=== PATIENT | female | born 1960 | race Caucasian/White ===

== ENCOUNTER 2021-12-09 15:53 | Outpatient (REF) | payer BC, SELFPAY ==
[2021-12-09 17:53] LABS: SARS PCR* Negative SARS-CoV-2 (Negative)
== END 2021-12-09 15:54 | disposition home or self-care (01) ==
LOC: NPINS 15:53
PROVIDERS: Visit Provider Internal Medicine Gastroenterology
DX: Z20.822 Contact with and (suspected) exposure to COVID-19 (principal)
CPT/HCPCS: 87635

== ENCOUNTER 2021-12-12 08:25 | Outpatient (CLI) | payer BC, SELFPAY | END 2021-12-12 08:26 | disposition home or self-care (01) | LOC: OP CLINIC 08:26 | PROVIDERS: PCP Family Medicine; Visit Provider Internal Medicine Gastroenterology | DX: R19.5 Other fecal abnormalities (principal); K63.5 Polyp of colon | CPT/HCPCS: 45380; 45385; 88305; 99153; J2250; J3010 ==

== ENCOUNTER 2022-06-13 07:42 | Emergency (ER) | payer BC, SELFPAY ==
[2022-06-13 07:53] VITALS: BP 130/93; PULSE 85; TEMP 35.4; O2SAT 98; BMI 51.1
--- NOTE | 2022-06-13 08:22 | CRLHL7_ITS ---
For Patients: As a result of the Cures Act, medical imaging exams and procedure reports are released immediately into your electronic medical record. You may view this report before your referring provider. If you have questions, please contact your health care provider. Indication: Bilateral knee injury Technique: Three views each of each knee were acquired Comparison: None Findings: No lytic or blastic lesion. No acute fracture, dislocation or destructive process. Degenerative changes primarily involving the medial and patellofemoral compartments. No foreign body. No visible joint effusion. Quadriceps tendon spurs bilaterally. Impression: Degenerative changes bilaterally. No acute fracture, dislocation or destructive process on either side. Dictated by Marvin Amaya MD @ 06/13/2022 9:04:09 AM (Electronically Signed)
[2022-06-13] MEDS: ACETAMINOPHEN 500 MG TABLET 1000 MG PO (08:35)
[2022-06-13 09:51] VITALS: BP 141/87; PULSE 77; O2SAT 99
--- NOTE | 2022-06-13 15:24 | ED.LOWEXIN ---
HPI - Extremity Injury (Lower) General Date Seen: 06/13/22 Chief Complaint: Extremity Pain/Injury, Lower Stated Complaint: Fell, injured both knees Time Seen by Provider: 06/13/22 08:06 Source: patient and family Mode of arrival: ambulatory Limitations: no limitations History of Present Illness HPI Narrative: Patient is a very nice 62-year-old lady who was going down the stairs and missed the 2nd from the last air, landing on her knees bilaterally in the flexed position, she has pain over her lower knees bilaterally, she is able to bear weight with pain, but thought she should need any x-ray. Denies any other injury to her hips, back, hands, wrists head or neck. She took some ice for her knees was really taking no medicines. Left greater than right of the knees is more painful. Denies any numbness tingling or weakness no snapping or popping when this occurred. Related Data Home Medications Medication Instructions Recorded Confirmed allopurinol 300 mg tablet mg 06/13/22 colchicine 0.6 mg tablet mg 06/13/22 doxepin 10 mg capsule mg 06/13/22 famotidine 20 mg tablet mg 06/13/22 furosemide 20 mg tablet mg 06/13/22 levothyroxine 150 mcg tablet mcg 06/13/22 levothyroxine 175 mcg tablet mcg 06/13/22 metformin 500 mg tablet,extended mg PO 06/13/22 release 24 hr montelukast 10 mg tablet mg 06/13/22 phentermine 37.5 mg tablet mg 06/13/22 spironolactone 25 mg tablet mg 06/13/22 Allergies Allergy/AdvReac Type Severity Reaction Status Date / Time NSAIDS (Non-Steroidal Allergy Unknown Verified 12/02/21 12:01 Anti-Inflamma pantoprazole Allergy Unknown Verified 12/02/21 12:01 propoxyphene Allergy Unknown Verified 12/02/21 12:01 CHERRIES Allergy Unknown Uncoded 12/02/21 12:01 DIAZIDE Allergy Unknown Uncoded 12/02/21 12:01 Review of Systems Status of ROS: Reports: 10 or more systems reviewed and unremarkable except as noted in History and below PFSH PFSH Social History Smoking Status: Former smoker How often do you have a drink containing alcohol: never How often do you have six or more drinks on one occasion: Never AUDIT-C Alcohol total score: 0 Non-prescribed substance use: denies use Exam Const: Vital Signs, click to edit/add: Vital Signs - 24 hr 06/13/22 07:53 06/13/22 09:51 Temperature 95.7 F L Pulse Rate [Pulse Oximeter] 85 77 Blood Pressure [Ri ght Upper Arm] 130/93 H 141/87 H Pulse Oximetry 98 99 Oxygen Delivery Me thod Room Air Room Air Course Course Hospital Course: Spoke with the patient and her , or x-rays are negative by my review and also by Radiology, I think this is more of a contusion which can be every bit is painful, unfortunately given her previous gastric surgery she is not a candidate to take NSAIDs, I will give her short supply of narcotic medications I did review the ZOOLOGY PROFESSOR and she did have any outstanding prescriptions or any evidence of any other significant activity. Icing is suggested, I offered her knee immobilizer, but she would like to try without which I do not think is a bad idea she does have that history of previous meniscal issues with her knees bilaterally and she may need to follow-up with orthopedics. I wrote a note for work that she should be off the next 48 hours to improve the situation. Vital Signs Vital signs: Initial Vital Signs Temperature 95.7 F L 06/13/22 07:53 Temperature Source Temporal Artery Scan 06/13/22 07:53 Pulse Rate 85 06/13/22 07:53 Blood Pressure 130/93 H 06/13/22 07:53 Blood Pressure Mean 105 06/13/22 07:53 Blood Pressure Position Sitting 06/13/22 07:53 Pulse Oximetry 98 06/13/22 07:53 Oxygen Delivery Method 06/13/22 07:53 Vital Signs Temperature 95.7 F L 06/13/22 07:53 Pulse Rate 85 06/13/22 07:53 Blood Pressure 130/93 H 06/13/22 07:53 Pulse Oximetry 98 06/13/22 07:53 Oxygen Delivery Method 06/13/22 07:53 Temperature 95.7 F L 06/13/22 07:53 Pulse Rate 77 06/13/22 09:51 Blood Pressure 141/87 H 06/13/22 09:51 Pulse Oximetry 99 06/13/22 09:51 Oxygen Delivery Method 06/13/22 09:51 MDM - Extremity Injury (Lower) Differential Diagnosis Differential diagnosis: Likely ankle sprain and strain, acute internal derangement of knee, fracture of femur, fracture of hip, puncture wound of foot, fracture of toe and ankle fracture Medical Records Attestation: I reviewed the patient's medical records. Lab Data Attestation: I reviewed the patient's lab results. Imaging Data knee : Attestation: I have reviewed the pertinent imaging results. My impression: Negative x-ray Radiologist's impression: Patient: MANJIT CLEVELAND Facility:?[facility] Patient ID:?[id number] Site Patient ID:?[id number]. Site :?[id number] Study:?XRay Knee Right 3 VIEW-06/13/2022 9:00:53 AM Ordering Physician:Susu Crook Final Report: Indication: Bilateral knee injury Technique: Three views each of each knee were acquired Comparison: None Findings: No lytic or blastic lesion. No acute fracture, dislocation or destructive process. Degenerative changes primarily involving the medial and patellofemoral compartments. No foreign body. No visible joint effusion. Quadriceps tendon spurs bilaterally. Impression: Degenerative changes bilaterally. No acute fracture, dislocation or destructive process on either side. Dictated by Marvin Amaya MD @ 06/13/2022 9:03:39 AM (Electronic Signature) Patient: MANJIT CLEVELAND Facility:?[facility] Patient ID:?[id number] Site Patient ID:?[id number]. Site :?[id number] Study:?XRay Knee Left 3 VIEW-06/13/2022 9:00:55 AM Ordering Physician:Susu Crook Final Report: Indication: Bilateral knee injury Technique: Three views each of each knee were acquired Comparison: None Findings: No lytic or blastic lesion. No acute fracture, dislocation or destructive process. Degenerative changes primarily involving the medial and patellofemoral compartments. No foreign body. No visible joint effusion. Quadriceps tendon spurs bilaterally. Impression: Degenerative changes bilaterally. No acute fracture, dislocation or destructive process on either side. Dictated by Marvin Amaya MD @ 06/13/2022 9:04:09 AM (Electronic Signature) Discharge Plan Discharge Clinical Impression: Contusion of knee Patient Disposition: Home w/ Parent or Adult Condition: Stable Instructions: Contusion in Adults (ED) Additional Instructions: Home rest use of ice underneath, Percocet for the discomfort, no kneeling on her knee. Follow-up with primary care if ongoing signs and symptoms, little bit of bacitracin or antibiotic ointment on the abrasion on her left knee would be helpful. Return as needed Prescriptions: No Action levothyroxine 175 mcg tablet Label Comments: TAKE 1 TABLET TABLET BY MOUTH DAILY phentermine 37.5 mg tablet Label Comments: TAKE ONE TABLET BY MOUTH DAILY doxepin 10 mg capsule Label Comments: TAKE 1 TO 2 CAPSULES BY MOUTH AT BEDTIME FOR HIVES spironolactone 25 mg tablet Label Comments: TAKE ONE TABLET BY MOUTH TWICE DAILY NEEDED FOR EDEMA famotidine 20 mg tablet Label Comments: TAKE 1 TABLET BY MOUTH 2 TIMES DAILY NEEDED levothyroxine 150 mcg tablet Label Comments: TAKE ONE TABLET BY MOUTH BEFORE BREAKFAST montelukast 10 mg tablet Label Comments: TAKE 1 TABLET BY MOUTH AT BEDTIME allopurinol 300 mg tablet Label Comments: TAKE 1 TABLET(300MG) BY MOUTH ONCE DAILY. furosemide 20 mg tablet Label Comments: TAKE TWO TABLETS BY MOUTH EVERY MORNING colchicine 0.6 mg tablet Label Comments: TAKE ONE TABLET BY MOUTH 2 TIMES DAILY NEEDED metformin 500 mg tablet extended release 24 hr PO Label Comments: TAKE 4 TABLETS BY MOUTH DAILY Follow Up/Referrals: Salena Her MD [Primary Care Provider] - Stand Alone Forms: [employer] Info Instructions
== END 2022-06-13 10:54 | disposition home or self-care (01) ==
PROVIDERS: Emergency Provider Family Medicine; PCP Family Medicine
DX: S80.02XA Contusion of left knee, initial encounter (principal); S80.01XA Contusion of right knee, initial encounter; W10.9XXA Fall (on) (from) unspecified stairs and steps, initial encounter
CPT/HCPCS: 73562; 99283; A9270

== ENCOUNTER 2022-08-10 21:43 | Emergency (ER) | payer BC, SELFPAY ==
[2022-08-10 22:02] VITALS: BP 138/86; PULSE 79; RESP 20; TEMP 36.6; O2SAT 98; BMI 49.2
--- NOTE | 2022-08-10 22:06 | ED_ITS ---
HPI - General Adult General Time Seen by Provider: 22:06 Date Seen: 08/10/22 Chief complaint: Flank Pain Stated complaint: pain in l side low back raditing to hip to front. Time Seen by Provider: 08/10/22 22:06 Source: patient and RN notes reviewed Mode of arrival: ambulatory Limitations: no limitations History of Present Illness HPI narrative: Patient is a 62-year-old female that started with left lower back pain that is wrapping into the left lower quadrant of her abdomen. She has had 1 episode of vomiting with it, feels nauseated and feels like she might throw up again now. She has constipation, did have a bowel movement tonight though. Symptoms started about 530 tonight. No fever, no urinary changes that she is aware of. She has not had any vaginal bleeding for years. She has had a history of kidney stones but feels like this is different. No trauma. Patient has had a gastric bypass, that is the reason for listing NSAIDs as an allergy. She does not have a true allergy. Thus, reviewed we should be able to use Toradol IV. Related Data Home Medications Medication Instructions Recorded Confirmed allopurinol 300 mg tablet mg 06/13/22 colchicine 0.6 mg tablet mg 06/13/22 doxepin 10 mg capsule mg 06/13/22 famotidine 20 mg tablet mg 06/13/22 furosemide 20 mg tablet mg 06/13/22 levothyroxine 150 mcg tablet mcg 06/13/22 levothyroxine 175 mcg tablet mcg 06/13/22 metformin 500 mg tablet,extended mg PO 06/13/22 release 24 hr montelukast 10 mg tablet mg 06/13/22 phentermine 37.5 mg tablet mg 06/13/22 spironolactone 25 mg tablet mg 06/13/22 cetirizine .ROUTE 08/10/22 Allergies Allergy/AdvReac Type Severity Reaction Status Date / Time NSAIDS (Non-Steroidal Allergy Unknown Verified 12/02/21 12:01 Anti-Inflamma pantoprazole Allergy Unknown Verified 12/02/21 12:01 propoxyphene Allergy Unknown Verified 12/02/21 12:01 CHERRIES Allergy Unknown Uncoded 12/02/21 12:01 DIAZIDE Allergy Unknown Uncoded 12/02/21 12:01 Review of Systems Status of ROS: Reports: 10 or more systems reviewed and unremarkable except as noted in History and below PFSH PFSH Social History Smoking Status: Former smoker How often do you have a drink containing alcohol: never How often do you have six or more drinks on one occasion: Never AUDIT-C Alcohol total score: 0 Non-prescribed substance use: denies use Exam Const: Vital Signs, click to edit/add: Vital Signs - 24 hr 08/10/22 22:02 08/10/22 22:49 Temperature 97.8 F Pulse Rate [Left P ulse Oximeter] 79 Respiratory Rate 20 Blood Pressure [Ri ght Upper Arm] 138/86 Pulse Oximetry 98 98 Oxygen Delivery Me thod Room Air Documenting provider has reviewed patient's vital signs: yes Common normals: oriented x3, no limitations, healthy appearing, alert and well nourished General appearance: cooperative, comfortable, well kempt and well developed Nutritional appearance: obese Other: Has a few beads of sweat developing on her forehead. Was initially comfortable until I had her move to lay down, made her feel more nauseated. HENMT: Common normals: normocephalic, head/scalp atraumatic, hearing grossly normal bilaterally and external nose normal Head and scalp: normocephalic and atraumatic Nose: external nose normal Eye: Common normals: PERRL, EOMs intact bilaterally, conjunctivae normal and no scleral icterus Conjunctiva: conjunctiva(e) normal Pupil: PERRL Neck & C-Spine: Common normals: full ROM, no lymphadenopathy and supple Resp: Common normals: normal respiratory effort, no retractions, no use of accessory muscles and clear to auscultation bilaterally Auscultation: clear to auscultation bilaterally Cardio: Common normals: regular rate, regular rhythm, S1 normal heart sound, S2 normal heart sound, no gallops, no clicks, no murmurs and no rub Rate: regular rate Rhythm: regular rhythm Heart sounds: S1 normal and S2 normal GI: Common normals: Normal to inspection, nondistended, normoactive bowel sounds present, soft to palpation, no hepatosplenomegaly and no masses Palpation: soft and no hepatosplenomegaly Other: Has left lower quadrant tenderness without rebound or guarding. Cannot appreciate any masses on palpation. Back & Pelvis: Common normals: thoracic and lumbar spine normal to inspection and no thoracic nor lumbar tenderness Other: No visible rash on her back or lower abdomen Neuro: Common normals: oriented x3, moves all extremities and gait normal Sensorium/orientation: alert Psych: Appearance: well kempt Course Course Hospital Course: Patient has had sudden onset left lower quadrant abdominal pain, do wonder about renal colic with kidney stones. She feels it is different but is certainly clinically looks like it could be along the lines of this type of pathology. Will give her Toradol, Zofran and some IV fluids. Will do a CT of her abdomen pelvis and get appropriate labs including a urinalysis. Certainly can be other intra-abdominal pathology, could even be constipation. Diverticulitis is a possibility. Ultimately with her labs and CT imaging, hopefully we will find our diagnosis. This seems to be intra-abdominal pathology, not musculoskeletal from what I am seeing here. Reevaluation(s) Reevaluation #1: Have reviewed with patient that she has a large kidney stone on the left, 10 mm x 7 mm. I am doubtful that this will pass. Her pain is improved. We discussed options. We have no urology that comes here, no association with any urologist. She had been at [facility] before and sounds like she has had to have lithotripsy before. We will see if we can get her hospitalized for this large kidney stone. Conceivably, her pain is better but it is going to be extremely difficult to arrange this outpatient if at all possible. There is possibly a bed at [facility] in [place] in the [facility]. Patient would like to see if she could possibly be transferred there. Time: 23:56 Consultations Consultation #1: Accepted by the hospitalist Dr. Lynch at [facility]. Had spoke with the on- call urologist prior to that who agreed for transfer. Time: 00:31 Vital Signs Vital signs: Initial Vital Signs Temperature 97.8 F 08/10/22 22:02 Temperature Source Temporal Artery Scan 08/10/22 22:02 Pulse Rate 79 08/10/22 22:02 Pulse Rhythm Regular 08/10/22 22:02 Respiratory Rate 20 08/10/22 22:02 Blood Pressure 138/86 08/10/22 22:02 Blood Pressure Mean 103 08/10/22 22:02 Blood Pressure Position Sitting 08/10/22 22:02 Pulse Oximetry 98 03/30/23 22:02 Oxygen Delivery Method Room Air 08/10/22 22:02 Vital Signs Temperature 97.8 F 08/10/22 22:02 Pulse Rate 79 08/10/22 22:02 Respiratory Rate 20 08/10/22 22:02 Blood Pressure 138/86 08/10/22 22:02 Pulse Oximetry 98 08/10/22 22:02 Oxygen Delivery Method Room Air 08/10/22 22:02 Temperature 97.8 F 08/10/22 22:02 Pulse Rate 79 08/10/22 22:02 Respiratory Rate 20 08/10/22 22:02 Blood Pressure 138/86 08/10/22 22:02 Pulse Oximetry 98 08/10/22 22:49 Oxygen Delivery Method Room Air 08/10/22 22:02 Medical Decision Making Lab Data Lab results reviewed: Yes I reviewed the patient's lab results Labs: Lab Results 08/10/22 Range/Units 22:49 WBC 14.89 H (4.50-11.00) K/uL RBC 5.05 (4.00-5.20) m/uL Hgb 15.3 (12.0-16.0) gm/dL Hct 45.2 (33.0-51.0) % MCV 90 (80-100) fL MCH 30 (26-34) pg MCHC 34 (32-36) gm/dL RDW Coeff of Leila 13.2 (11.5-15.5) % Plt Count 393 (140-440) K/uL Neut % (Auto) 72.5 H (42.0-72.0) % Lymph % (Auto) 19.2 L (20-44) % Fannin % (Auto) 6.2 (0.0-11.0) % Eos % (Auto) 1.3 (0.0-7.0) % Baso % (Auto) 0.3 (0.0-3.0) % Neut # (Auto) 10.80 H (1.7-7.0) K/uL Lymph # (Auto) 2.90 (0.90-2.90) K/uL Fannin # (Auto) 0.90 (0.00-0.90) K/UL Eos # (Auto) 0.20 (0.00-0.50) K/uL Baso # (Auto) 0.00 (0.00-0.30) K/uL Sodium 141 (135-149) mmol/L Potassium 4.4 (3.6-5.1) mmol/L Chloride 106 (96-114) mmol/L Carbon Dioxide 25 (20-32) mmol/L BUN 16 (7-30) mg/dL Creatinine 1.1 (0.5-1.5) mg/dL Estimated Creat Clear 50.24 Estimated GFR 56 ml/min Glucose 132 H (60-115) mg/dL Lactate 2.2 H (0.5-1.9) mmol/L Calcium 9.8 (8.4-10.6) mg/dL Total Bilirubin 0.5 (0.1-1.5) mg/dL AST 28 (12-35) U/L ALT 27 (4-35) U/L Alkaline Phosphatase 87 (40-150) U/L C-Reactive Protein 0.6 (0.5-1.0) mg/dL Total Protein 8.1 (6.0-8.3) g/dL Albumin 4.5 (3.3-5.0) g/dL Imaging Data CT scan - abdomen: Attestation: I have reviewed the pertinent imaging results. Radiologist's impression: Patient: MANJIT HATFIELD Facility:?[facility] Patient ID:?[id number] Site Patient ID:?[id number]. Site :?[id number] Study:?CT Abdomen/Pelvis without-08/10/2022 10:49:41 PM Ordering Physician:?Dennis Decker Final Report: INDICATION: Pain in left lower back radiating to the front, nausea. TECHNIQUE: CT abdomen and pelvis without contrast. COMPARISON: None. FINDINGS: Lower chest: Unremarkable. Liver: Normal in size and attenuation. Gallbladder and bile ducts: No stones or inflammation. No biliary ductal dilatation. Spleen: Normal in size. Adrenal glands: Normal in size. No nodules. Pancreas: Mild fatty infiltration. Kidneys: 10 x 7 mm calculus in the proximal left ureter. Mild left hydronephrosis. Mild asymmetric left perinephric stranding, likely due to increased hydrostatic pressures. Two small nonobstructive renal calculi in the right renal lower pole. GI tract: Postsurgical changes of gastric bypass. Normal in caliber. Normal brannon endix. Lymph nodes: No lymphadenopathy. Vasculature: Unremarkable. Abdominal wall/Omentum/Peritoneum: Fat containing umbilical hernia. No free air or significant free fluid. Pelvis: Unremarkable. Bones: Degenerative changes of the spine. IMPRESSION: 1. 10 x 7 mm proximal left ureteral calculus with mild left hydronephrosis. 2. Right nonobstructive nephrolithiasis. Please note that all CT scans at this facility use dose modulation, iterative reconstruction, and/or weight-based dosing when appropriate to reduce radiation dose to as low as reasonably achievable. Dictated by Hernandez Ding MD @ 08/10/2022 11:24:59 PM (Electronic Signature) Critical Care Time Critical Care Time Critical Care Time: No Discharge Plan Discharge Clinical Impression: Calculus of ureter, Renal colic on left side Patient Disposition: Xfer Acute Care Hospital Discharge Location: [facility] Condition: Stable
--- NOTE | 2022-08-10 22:15 | CRLHL7_ITS ---
For Patients: As a result of the Century Cures Act, medical imaging exams and procedure reports are released immediately into your electronic medical record. You may view this report before your referring provider. If you have questions, please contact your health care provider. INDICATION: Pain in left lower back radiating to the front, nausea. TECHNIQUE: CT abdomen and pelvis without contrast. COMPARISON: None. FINDINGS: Lower chest: Unremarkable. Liver: Normal in size and attenuation. Gallbladder and bile ducts: No stones or inflammation. No biliary ductal dilatation. Spleen: Normal in size. Adrenal glands: Normal in size. No nodules. Pancreas: Mild fatty infiltration. Kidneys: 10 x 7 mm calculus in the proximal left ureter. Mild left hydronephrosis. Mild asymmetric left perinephric stranding, likely due to increased hydrostatic pressures. Two small nonobstructive renal calculi in the right renal lower pole. GI tract: Postsurgical changes of gastric bypass. Normal in caliber. Normal appendix. Lymph nodes: No lymphadenopathy. Vasculature: Unremarkable. Abdominal wall/Omentum/Peritoneum: Fat containing umbilical hernia. No free air or significant free fluid. Pelvis: Unremarkable. Bones: Degenerative changes of the spine. IMPRESSION: 1. 10 x 7 mm proximal left ureteral calculus with mild left hydronephrosis. 2. Right nonobstructive nephrolithiasis. Please note that all CT scans at this facility use dose modulation, iterative reconstruction, and/or weight-based dosing when appropriate to reduce radiation dose to as low as reasonably achievable. Dictated by Hernandez Ding MD @ 08/10/2022 11:24:59 PM (Electronically Signed)
[2022-08-10 22:49] VITALS: O2SAT 98
[2022-08-10] MEDS: KETOROLAC 15 MG/ML inj IVP (22:50)
[2022-08-10] MEDS: ONDANSETRON 2 MG/ML inj 4 MG IVP (22:50)
[2022-08-10] MEDS: 0.9 % SODIUM CHLORIDE 500 ML 500 ML IV (22:50)
[2022-08-10 22:54] LABS: Lactate* 2.2 mmol/L (0.5-1.9)
[2022-08-10 23:12] LABS: Albumin* 4.5 g/dL (3.3-5.0); Chloride* 106 mmol/L (96-114)
[2022-08-10 23:13] LABS: Potassium* 4.4 mmol/L (3.6-5.1); Sodium* 141 mmol/L (135-149)
[2022-08-10 23:14] LABS: Basophils Percent Auto 0.3 % (0.0-3.0); Eosinophils Percent Auto 1.3 % (0.0-7.0); Hematocrit 45.2 % (33.0-51.0); Hemoglobin* 15.3 gm/dL (12.0-16.0); Immature Granulocytes Pct Auto 0.5 %; Lymphocytes Percent Auto 19.2 % (20-44); Mean Corpuscular HGB Conc 34 gm/dL (32-36); Mean Corpuscular Hemoglobin 30 pg (26-34); Mean Corpuscular Volume 90 fL (80-100); Monocytes Percent Auto 6.2 % (0.0-11.0); Neutrophils Percent Auto 72.5 % (42.0-72.0); Platelet Count* 393 K/uL (140-440); RDW Coefficient of Variation % 13.2 % (11.5-15.5); Red Blood Count 5.05 m/uL (4.00-5.20); White Blood Count* 14.89 K/uL (4.50-11.00)
[2022-08-10 23:15] LABS: Alkaline Phosphatase* 87 U/L (40-150); Aspartate Amino Transferase* 28 U/L (12-35); Bilirubin Total* 0.5 mg/dL (0.1-1.5); Carbon Dioxide* 25 mmol/L (20-32); Creatinine* 1.1 mg/dL (0.5-1.5); Est. Creatinine Clearance* 50.24; Estimated Glomerular Filt Rate 56 ml/min; Total Protein* 8.1 g/dL (6.0-8.3)
[2022-08-10 23:16] LABS: Alanine Aminotransferase* 27 U/L (4-35); Blood Urea Nitrogen* 16 mg/dL (7-30); Calcium* 9.8 mg/dL (8.4-10.6); Glucose* 132 mg/dL (60-115)
[2022-08-10 23:18] LABS: C Reactive Protein* 0.6 mg/dL (0.5-1.0)
[2022-08-10 23:19] LABS: Slide Review Reflex No
[2022-08-11 01:11] LABS: Appearance Urine Clear (Clear); Bilirubin Urine Negative (Negative); Blood Urine 3+ (Negative); Color Urine Yellow (Yellow); Glucose Urine Negative (Negative); Ketones Urine Negative (Negative); Leukocyte Esterase Urine Trace (Negative); Nitrite Urine Negative (Negative); Protein Urine Negative (Negative); Urobilinogen Urine 0.2 (0.2-1.0)
[2022-08-11 01:23] LABS: Bacteria Urine Few; Squamous Epithelial Cell Urine Few (None-Few)
[2022-08-11 01:27] VITALS: BP 142/89; PULSE 78; RESP 16; TEMP 36.9; O2SAT 97
--- NOTE | 2022-08-11 01:55 | ED.NURSE ---
report to franki Schwarz
== END 2022-08-11 01:55 | disposition short-term general hospital (02) ==
PROVIDERS: Emergency Provider Family Medicine; PCP Family Medicine
DX: N20.1 Calculus of ureter (principal)
CPT/HCPCS: 36415; 74176; 80053; 81001; 83605; 85025; 86140; 87086; 94761; 96374; 96375; 99284; 99285; J1885; J2405; J7120

== ENCOUNTER 2022-08-11 01:35 | Outpatient (CLI) | payer BC, SELFPAY | END 2022-08-11 01:36 | disposition home or self-care (01) | LOC: AMB 09:20 | PROVIDERS: PCP Family Medicine; Visit Provider Family Medicine | DX: N20.0 Calculus of kidney (principal) | CPT/HCPCS: A0425; A0426; A0428 ==

== ENCOUNTER 2022-08-21 19:59 | Emergency (ER) | payer BC, SELFPAY ==
[2022-08-21 20:15] VITALS: BP 134/84; PULSE 84; RESP 18; TEMP 36.7; O2SAT 99; BMI 47.7
--- NOTE | 2022-08-21 20:29 | CRLHL7_ITS ---
For Patients: As a result of the Century Cures Act, medical imaging exams and procedure reports are released immediately into your electronic medical record. You may view this report before your referring provider. If you have questions, please contact your health care provider. INDICATION: Left flank pain. TECHNIQUE: CT abdomen and pelvis without contrast. COMPARISON: CT abdomen and pelvis 08/10/2022. FINDINGS: Lower chest: Mosaic attenuation of the lung bases, which can be seen small vessel or small airways disease. Liver: Shellie`s lobe, normal variant. Normal attenuation. No suspicious masses. Gallbladder and bile ducts: No stones or inflammation. No biliary dilatation. Pancreas: Unremarkable. No mass or inflammation. Spleen: Normal in size. No masses. Adrenal glands: Normal in size. No nodules. Kidneys, Ureters, and Bladder: Punctate nonobstructing right nephrolith. Interval progression of the previously seen 7 mm left ureteral calculus down into the distal ureter on today`s exam. Persistent mild to moderate left proximal hydroureteronephrosis and mild perinephric fat stranding. Unremarkable right ureter and bladder. GI tract: Gastric bypass changes. Normal in caliber. Normal appendix. Vasculature: Abdominal aorta is normal in caliber. Lymph nodes: No lymphadenopathy. Peritoneum/Abdominal Wall: Unchanged tiny fat-containing umbilical hernia.. No free air. No free fluid. Pelvis: Unremarkable. No pelvic masses. Bones: Unremarkable for age. IMPRESSION: Interval progression of the previously seen 7 mm left ureteral calculus down into the distal ureter. Persistent mild to moderate left proximal hydroureteronephrosis. Punctate nonobstructing right nephrolith. Please note that all CT scans at this facility use dose modulation, iterative reconstruction, and/or weight-based dosing when appropriate to reduce radiation dose to as low as reasonably achievable. Dictated by Florentin Benitez MD @ 08/21/2022 10:26:11 PM (Electronically Signed)
--- NOTE | 2022-08-21 20:30 | ED.GENADULT ---
HPI - General Adult General Chief complaint: Flank Pain Stated complaint: Kidney issues Time Seen by Provider: 08/21/22 20:22 History of Present Illness HPI narrative: This 62-year-old female comes in reporting left flank pain. She was seen a couple weeks ago approximately here and noted to have a large stone in the left ureter measuring 7 x 10 mm. She was transferred to [facility] where she did have a laser treatment to remove the stone. She had a stent in place for 7 days and this has been removed. She was feeling better until today when her left flank pain has returned. She does not report any fevers or symptoms of dysuria. Related Data Home Medications Medication Instructions Recorded Confirmed allopurinol 300 mg tablet 300 mg PO DAILY 06/13/22 08/21/22 colchicine 0.6 mg tablet 0.6 mg PO BID 06/13/22 08/21/22 doxepin 10 mg capsule 10 mg PO BID 06/13/22 08/21/22 famotidine 20 mg tablet 20 mg PO BID PRN 06/13/22 08/21/22 furosemide 20 mg tablet 20 mg PO DAILY 06/13/22 08/21/22 levothyroxine 175 mcg tablet 175 mcg PO DAILY 06/13/22 08/21/22 metformin 500 mg tablet,extended 500 mg PO DAILY 06/13/22 08/21/22 release 24 hr montelukast 10 mg tablet 10 mg PO HS 06/13/22 08/21/22 phentermine 37.5 mg tablet 37.5 mg PO DAILY 06/13/22 08/21/22 spironolactone 25 mg tablet 25 mg PO BID 06/13/22 08/21/22 cyanocobalamin (vitamin B-12) 1,000 mcg IM Q4W 08/21/22 08/21/22 1,000 mcg/mL injection solution oxycodone 5 mg tablet 5 mg PO Q6H PRN 08/21/22 08/21/22 Previous Rx's Medication Instructions Recorded oxycodone 5 mg capsule 5 mg PO Q6H PRN pain #20 caps 08/21/22 Allergies Allergy/AdvReac Type Severity Reaction Status Date / Time NSAIDS (Non-Steroidal Allergy Unknown Verified 08/21/22 20:19 Anti-Inflamma pantoprazole Allergy Unknown Verified 08/21/22 20:19 propoxyphene Allergy Unknown Verified 08/21/22 20:19 CHERRIES Allergy Unknown Uncoded 12/02/21 12:01 DIAZIDE Allergy Unknown Uncoded 12/02/21 12:01 Review of Systems Status of ROS: Reports: 10 or more systems reviewed and unremarkable except as noted in History and below Narrative: Constitutional: No fevers, no weight gain or loss. Eyes: No discharge. No vision changes. HENT: No congestion, no sore throat, no ear pain. Cardiovascular: No chest pain, no palpitations. Respiratory: No shortness of breath, no wheezes, no cough. Gastrointestinal: No vomiting, no diarrhea. Left flank pain radiating into the left abdomen. Genitourinary: No dysuria, no hematuria. Musculoskeletal: Normal range of motion. Skin: No rashes, no pruritis. Neurological: No dizziness, weakness, sensory change, speech change. Endo/Heme/Allergies: No bruising or bleeding. No polydipsia. Pysch: no suicidality, no anxiety, no insomnia. All other systems reviewed and are negative. [facility] Social History Smoking Status: Former smoker How often do you have a drink containing alcohol: never How often do you have six or more drinks on one occasion: Never AUDIT-C Alcohol total score: 0 Non-prescribed substance use: denies use Exam Narrative: Exam Narrative: Constitutional: Well-developed, well-nourished, no acute distress. HEENT: Normocephalic, atraumatic. Neck: Normal range of motion. Nontender. Supple. Heart: Regular. No murmurs. Normal rate. Intact distal pulses. Lungs: Clear to auscultation. No chest discomfort. No wheezes, rhonchi, or rales. Abdomen: Normal bowel sounds. Pain in the left flank region radiating into left abdomen. Genitalia: Deferred. Back: No midline tenderness. Normal range of motion. Extremities: Normal range of motion. No injury. Skin: Intact. No rash. Warm. No erythema or pallor. Neurologic: No altered sensation. No weakness. Alert and oriented. Psychiatric: No suicidality. No anxiety or depression. No insomnia. Nursing notes and vitals signs are reviewed. Const: Vital Signs, click to edit/add: Vital Signs - 24 hr 08/21/22 20:15 Temperature 98.0 F Pulse Rate [Right Pulse Oximeter] 84 Respiratory Rate 18 Blood Pressure [Ri ght Upper Arm] 134/84 Pulse Oximetry 99 Oxygen Delivery Me thod Room Air Course Vital Signs Vital signs: Initial Vital Signs Temperature 98.0 F 08/21/22 20:15 Temperature Source Temporal Artery Scan 08/21/22 20:15 Pulse Rate 84 08/21/22 20:15 Respiratory Rate 18 08/21/22 20:15 Blood Pressure 134/84 08/21/22 20:15 Blood Pressure Mean 100 08/21/22 20:15 Blood Pressure Position Sitting 08/21/22 20:15 Pulse Oximetry 99 08/21/22 20:15 Oxygen Delivery Method Room Air 08/21/22 20:15 Vital Signs Temperature 98.0 F 08/21/22 20:15 Pulse Rate 84 08/21/22 20:15 Respiratory Rate 18 08/21/22 20:15 Blood Pressure 134/84 08/21/22 20:15 Pulse Oximetry 99 08/21/22 20:15 Oxygen Delivery Method Room Air 08/21/22 20:15 Temperature 98.0 F 08/21/22 20:15 Pulse Rate 84 08/21/22 20:15 Respiratory Rate 18 08/21/22 20:15 Blood Pressure 134/84 08/21/22 20:15 Pulse Oximetry 99 08/21/22 20:15 Oxygen Delivery Method Room Air 08/21/22 20:15 Medical Decision Making MDM Narrative Medical decision making narrative: This patient comes in with left flank pain suspicious for a kidney stone. She had a recent laser procedure to remove a large stone in the left ureter and felt better after that procedure. She had a stent in place for about a week and that has been removed in out now for several days. Today she had recurrence of similar pain. CT imaging by my review with radiology report pending does show evidence of a larger than average stone in the distal left ureter with hydroureter upstream. This patient may need some assistance with passing the stone however it is down close to the bladder. She does have connections with a urologist and did have conversation today regarding recurrence of pain. She was instructed to come in here for evaluation. The patient did receive an intramuscular injection of Toradol for pain relief. She has a few tablets of oxycodone left but will need more pain medicine. She is okay to be discharged home and is recommended to follow-up with her urologist for ongoing management. She received prescription for oxycodone and Zofran. She does have a E history of gastric bypass about 10 years ago and has avoided NSAIDs but realized that Toradol given parenterally brought great relief to her symptoms. I did provide a prescription for some tablets of [place] that could be used sparingly if needed with the understanding that this does pose some increased risk for her GI track. Discharge Plan Discharge Clinical Impression: Calculus of ureter Patient Disposition: Home, Self-Care Condition: Stable Additional Instructions: Take medication as needed and indicated. Follow up with urologist for ongoing management. Return if worsening. Prescriptions: New oxycodone 5 mg capsule 5 mg PO Q6H PRN (Reason: pain) Qty: 20 0RF No Action levothyroxine 175 mcg tablet 175 mcg PO DAILY Patient Comments: TAKE 1 TABLET TABLET BY MOUTH DAILY phentermine 37.5 mg tablet 37.5 mg PO DAILY Patient Comments: TAKE ONE TABLET BY MOUTH DAILY doxepin 10 mg capsule 10 mg PO BID Patient Comments: TAKE 1 TO 2 CAPSULES BY MOUTH AT BEDTIME FOR HIVES spironolactone 25 mg tablet 25 mg PO BID Patient Comments: TAKE ONE TABLET BY MOUTH TWICE DAILY NEEDED FOR EDEMA famotidine 20 mg tablet 20 mg PO BID PRN Patient Comments: TAKE 1 TABLET BY MOUTH 2 TIMES DAILY NEEDED montelukast 10 mg tablet 10 mg PO HS Patient Comments: TAKE 1 TABLET BY MOUTH AT BEDTIME allopurinol 300 mg tablet 300 mg PO DAILY Patient Comments: TAKE 1 TABLET(300MG) BY MOUTH ONCE DAILY. furosemide 20 mg tablet 20 mg PO DAILY Patient Comments: TAKE TWO TABLETS BY MOUTH EVERY MORNING colchicine 0.6 mg tablet 0.6 mg PO BID Patient Comments: TAKE ONE TABLET BY MOUTH 2 TIMES DAILY NEEDED metformin 500 mg tablet extended release 24 hr 500 mg PO DAILY Patient Comments: TAKE 4 TABLETS BY MOUTH DAILY cyanocobalamin (vitamin B-12) 1,000 mcg/mL solution 1,000 mcg IM Q4W oxycodone 5 mg tablet 5 mg PO Q6H PRN Follow Up/Referrals: Salena Her MD [Primary Care Provider] - [facility]
[2022-08-21] MEDS: KETOROLAC 30 MG/ML inj IM (20:38)
== END 2022-08-21 21:35 | disposition home or self-care (01) ==
PROVIDERS: Emergency Provider Emergency Medicine Emergency Medical Services; PCP Family Medicine
DX: N20.1 Calculus of ureter (principal)
CPT/HCPCS: 74176; 96372; 99284; J1885

== ENCOUNTER 2023-10-15 08:24 | Outpatient (CLI) | payer BC, SELFPAY ==
--- OUTSIDE RECORDS SUMMARY | 2023-10-15 08:28 | XMS_ITS | Clinical Summary ---
Author Organization [facility] Address [place], [place] [address] Care Team Providers Care Inside Sales Professional Name Role Phone Salena Her MD Primary Care Provider [phone] Saul Hanley PharmD Unavailable [phone] Allergies Active Allergy Reactions Criticality Noted Date Comments Figueroa Anaphylaxis High 03/24/2008 Influenza Virus Vaccines Dizziness,Visual Disturbances 05/28/2020 Equilibrium of off and gets dehydrated Nsaids (Non-Steroidal Anti-Inflammatory Drug) 10/12/2010 Due to bariatric surgery Propoxyphene Hcl Other - Describe In Comment Field Pantoprazole 10/12/2010 Due to bariatric surgery Triamterene-Hydrochlor othiazid Myalgia Medium 05/31/2006 Medications Medication Sig Dispensed Refills Start Date End Date Status MY-[id number]-[id number] Acid-Lutein (CENTRUM SILVER) 500-250 mcg Chew Chew 2 Tablets by mouth at bedtime. 0 1 Active ferrous sulfate, 65 mg elemental, 325 mg (65 mg iron) EC tabletIndication s:Status post bariatric surgery Take 1 Tablet by mouth every 3 days. 0 1 Active Syringe with Needle, Safety (BD Integra) 3 mL 25 gauge x 5/8 syrgIndications: S/P bariatric surgery As directed. 100 Each 3 1 Active CPAPIndications: SYDNIE (obstructive sleep apnea) CPAP machine for home use at pressure 5-9 cmw, nasal mask x1/3month with nasal cushion x2/mo Length of Need: 99 months Frequency of Use: Daily 1 Each 11 2 Active phentermine (ADIPEX-P) 37.5 mg tablet Take 37.5 mg by mouth once daily before a meal. 2 Active colchicine 0.6 mg tablet Take 0.6 mg by mouth every 3 days for maintenance, the uses 0.6 mg by mouth twice daily as needed for gout flares. Active potassium gluconate 500 mg (83 mg) tab Take 1 Tablet by mouth every 3 days. Active oxymetazoline (Afrin Sinus, oxymetazoline,) 0.05 % nasal spray Inhale 2 Sprays into affected nostril(s) at bedtime. Active metFORMIN (GLUCOPHAGE) 1,000 mg tabletIndication s:Type 2 diabetes mellitus without complication, without long-term current use of insulin (HC) Take 1 Tablet (1,000 mg) by mouth once daily with a meal. 0 3 Active valACYclovir (VALTREX) 1 gram tablet Take by mouth every 12 hours. as needed (per patient) 0 3 Active cholecalciferol 2,000 unit tablet Take 2,000 units by mouth once daily. 3 Active levothyroxine (SYNTHROID) 150 mcg tablet Take 1 Tablet (150 mcg) by mouth before breakfast. 3 Active allopurinoL (ZYLOPRIM) 300 mg tabletIndication s:Gout, unspecified cause, unspecified chronicity, unspecified site Take 1 Tablet (300 mg) by mouth once daily. 90 Tablet 3 3 Active cyanocobalamin (VITAMIN B12) 1,000 mcg/mL injectionIndicat ions:Status post bariatric surgery INJECT 1 ML INTRAMUSCULAR EVERY 4 WEEKS. Strength: 1,000 mcg/mL 3 mL 3 3 Active famotidine (PEPCID) 20 mg tabletIndication s:Chronic GERD Take 1 Tablet (20 mg) by mouth 2 times daily if needed for GI Upset or Heartburn. 180 Tablet 3 3 Active fexofenadine (JJ) 180 mg tablet Take 180 mg by mouth once daily with a meal. Do not crush or chew. Active spironolactone (ALDACTONE) 25 mg tabletIndication s:Edema, unspecified type TAKE ONE TABLET (25MG) BY MOUTH TWICE DAILY NEEDED FOR EDEMA 180 Tablet 4 Active cetirizine (ZYRTEC) 10 mg tabletIndication s:Urticaria Take 2 Tablets (20 mg) by mouth once daily. 60 Tablet 4 4 Active furosemide (LASIX) 20 mg tabletIndication s:Edema, unspecified type TAKE 2 TABLETS (40 MG) BY MOUTH EVERY MORNING. 180 Tablet 4 Active cyclobenzaprine (FLEXERIL) 10 mg tabletIndication s:Trapezius muscle spasm,Lumbar foraminal stenosis,Lumbar strain, subsequent encounter TAKE 1 TABLET (10 MG) BY MOUTH 3 TIMES DAILY IF NEEDED FOR MUSCLE SPASM. 20 Tablet 2 4 Active furosemide (LASIX) 20 mg tabletIndication s:Edema, unspecified type Take 2 Tablets (40 mg) by mouth every morning. 180 Tablet 2 3 09/24/19 24 Discontinued cyclobenzaprine (FLEXERIL) 10 mg tabletIndication s:Trapezius muscle spasm,Lumbar foraminal stenosis,Lumbar strain, subsequent encounter TAKE 1 TABLET (10 MG) BY MOUTH 3 TIMES DAILY IF NEEDED FOR MUSCLE SPASM. 20 Tablet 4 09/26/19 24 Discontinued Active Problems Problem Noted Date Diagnosed Date Calculus of ureter 08/11/2022 08/11/2022 Ureteral stone with hydronephrosis 08/11/2022 Pap smear for cervical cancer screening 01/13/20 22 Overview: 10/2021 NIL/HPV negative. Plan: routine screening Colon polyp 12/15/2021 Overview: Colonoscopy 12/2021 3-TA, repeat in 5 years SYDNIE (obstructive sleep apnea) 06/13/2021 Osteopenia 03/21/2021 Calculus of kidney 03/17/2021 Morbid obesity 01/18/2021 Other shelter (current) drug therapy 1 Pain in both knees 01/18/2021 Sensorineural hearing loss, bilateral 07/09/2020 Tinnitus, bilateral 07/09/2020 History of meniscal tear of left knee 05/02/2019 H/O renal calculi 01/06/2019 Overview: 1977, 2011 and 2018 Hyperparathyroidism, unspecified 01/30/2017 Overview: 01/2017- normocalcemic 01/2017 dexascan Bone density - normal Lumbar foraminal stenosis 08/01/2011 Special screening for malignant neoplasms, colon 04/24/2011 Status post bariatric surgery 10/12/2010 Overview: Dos 09/21/2010 Thyroiditis, autoimmune 11/10/2009 Overview: DR HAWKINS HIGH ANTI THYROID AB. SEE 04/21 NOTE Chronic urticaria 11/10/2009 Overview: DUE TO THYROID DISEASE HIGH THYROID AUTOANTIBODIES Vitamin D deficiency 12/23/2008 Mixed hyperlipidemia 06/04/2006 Morbid obesity with BMI of 50.0-59.9, adult 05/14 Backache, unspecified 05/31/2006 Gout, unspecified 05/31/2006 Unspecified hypothyroidism 10/12/2005 Overview: Diagnosis 10/2005 Encounters Date Type Department Care Team Description 09/22/2023 Refill [facility] [address] [place] [address] Salena Her MD Refill Request (Furosemide, Cyclobenzaprine) 08/24/2023 Refill [facility] [address] [place] [address] Salena Her MD Refill Request (Spironolactone) 07/26/2023 Refill [facility] [address] [place] [address] Salena Her MD Refill Request (Cyclobenzaprine) from Last 3 Months Immunizations Name Administration Dates Next Due COVID-19 Vaccine Spikevax (M oderna 50mcg/0.5mL) 12YO+ [id number] Formula PF 06/13/2023 COVID-19 vaccine (Moderna 100mcg/0.5mL) ANNALISA VIGIL 09/01/2020,08/04/2020 COVID-19 vaccine (MAR SystemsBio NTech 30mcg/0.3mL) 12YO+ BIVALENT PF, MDV 02/10/2022 COVID-19 vaccine (MAR Systems[employer] NTech 30mcg/0.3mL) 12YO+ TAY-SUCROSE PF, MDV 11/04/2021,06/20/2021 Pneumococcal Conj 20-valent (Prevnar 20) 024 Pneumococcal Poly,23-Valent (Pneumovax) 03/08/20 09,03/11/2002 Pneumococcal conj 13-Valent (Prevnar 13) 014 Td (Age >=7 Years) 02/06/1997 Tdap 05/09/2019,03/24/2008 Zoster (Shingrix-RZV, recombinant) 11/02/2020, Family History Medical History Relation Name Comments Allergies Brother 1 Cancer-prostate Brother 2 Arthritis Father Cancer-prostate Father Heart Disease Father chf Other Father gout Heart Disease Maternal Aunt 1 Allergies Maternal Aunt 2 Cancer Maternal Aunt 3 Asthma Maternal Aunt 4 Arthritis Maternal Aunt 5 Diabetes Maternal Aunt 6 Thyroid Disease Maternal Aunt 7 Cancer-prostate Maternal Uncle 1 Diabetes Maternal Uncle 2 Allergies Mother Arthritis Mother Asthma Mother Cancer Mother genital cancer Diabetes Mother Heart Disease Mother chf// breezy abetic Hypertension Mother Thyroid Disease Mother hyperthyroid ism Cancer-breast Paternal Aunt 1 leslie recurrence, age 70 Cancer-prostate Paternal Aunt 1 leslie Arthritis Paternal Aunt 2 Arthritis Paternal Grandfather Cancer Paternal Grandfather skin ca Cancer Sister 1 uterine/cervix? cancer Allergies Sister 2 Allergies Son 1 Asthma Son 2 Relation Name Status Comments Brother 1 Brother 2 Father Maternal Aunt 1 Maternal Aunt 2 Maternal Aunt 3 Maternal Aunt 4 Maternal Aunt 5 Maternal Aunt 6 Maternal Aunt 7 Maternal Uncle 1 Maternal Uncle 2 Mother Paternal Aunt 1 leslie Alive Paternal Aunt 2 Paternal Grandfather Sister 1 Sister 2 Son 1 Son 2 Social History Tobacco Use Types Packs/Day Years Used Date Smoking Tobacco: Former Cigarettes 2 6 0 05/14/1972 - 05/14/1978 Smokeless Tobacco: Never Tobacco Cessation:Counseling Given: Yes Alcohol Use Standard Drinks/Week Comments Yes 0 (1 standard drink = 0.6 oz pur e alcohol) once every 6 month , rare PHQ-2 Answer Date Recorded PHQ-2 TOTAL SCORE 0 11/01/2022 Social Connections Answer Date Recorded Frequency of Communication with Friends and Fami ly 0 01/25/2023 Financial Resource Strain Answer Date R ecorded Difficulty of Paying Living Expenses 3 01/25/2023 Difficulty of Paying Living Expenses Not on file 01/25/2023 Food Insecurity Answer Date Recorded Worried About Running Out of Food in the Last Ye ar 1 01/25/2023 Transportation Needs Answer Date Record ed Lack of Transportation (Medical) 1 01/25/2023 Housing Stability Answer Date Recorded Unable to Pay for Housing in the Last Year 1 01/25/2023 Sex and Gender Information Value Date Recorded Sex Assigned at Not on file Gender Identity Not on file Sexual Orientation Not on file Obstetrics History Last Filed Vital Signs Vital Sign Reading Time Taken Comments Blood Pressure 119/73 06/13/2023 2:04 PM MARINE MACHINIST Pulse 86 07/04/2023 8:19 AM MARINE MACHINIST Temperature 36.4 ??C (97.6 ??F) 04/09/2023 9:03 AM CS T Respiratory Rate 16 01/19/2023 12:52 PM CDT Oxygen Saturation 99% 07/04/2023 8:19 AM MARINE MACHINIST Inhaled Oxygen Concentration - - Weight 138.3 kg (305 lb) 07/04/2023 8:19 AM MARINE MACHINIST Height 171.5 cm (5' 7.5) 04/09/2023 9:03 AM MARINE MACHINIST Body Mass Index 47.06 04/09/2023 9:03 AM MARINE MACHINIST Plan of Treatment Upcoming Encounters Date Type Department Care Team (Late st Contact Info) Description 10/22/2023 2:20 PM CDT Office Visit [facility] [address] [place] [address] Olman Petty MD [address] [facility] [place] [address] Health Maintenance Due Date Last Done Comments DEXA/DXA scan for age 65+ 2023 01/30/2017 Depression screening for age 12+ 11/02/2023 11/01/2022, 11/04/2021, 12/03/2020, Additional history exists Influenza for age 65+ 01/13/2024 Mammogram for age 45-75 03/14/2024 03/14/20 23, 11/04/2021, 06/07/2020, Additional history exists BMI (ht and wt on same day) for age 18+ 04/09/2024 04/09/2023, 12/27/2022, 11/01/2022, Additional history exists Pap test for age 21-65 11/04/2024 , 11/04/2021, 03/19/2018, Additional history exists Colonoscopy through age 75 12/12/202612/12, 12/12/2021, 12/12/2021, Additional history exists Lipids for age 45-75 11/02/2027 11/01/2022, 01/02/2022, 11/13/2018, Additional history exists Tetanus booster 05/09/2029 05/09/2019, 03/14, 02/06/1997 HIV for age 15-65 Completed 09/14/2010 Hepatitis C screening for ag e 18-79 Completed 12/29/2014 Tdap Completed 05/09/2019, 03/24/2008 Zoster (shingles) series for age 50+ Completed 11/02/2020, 05/28/2020 COVID-19 vaccine series Completed 06/13/19, 02/10/2022, 11/04/2021, Additional history exists Pneumococcal series for age 65+ Completed 06/13/2023, 04/20/2014, 03/08/2009, Additional history exists Medical Devices Implanted Type Area Business Office Representative Device Identifier Shelf Expiration Date Model / Serial / Lot Seamguard Reinforcement [id number] - [id number] Implanted:Qty: 3 on 09/21/2010 at [facility] [employer] 05/24/2013 [id number] # / / [id number] Stent Uret [id number] Contour - [id number] Implanted:Qty: 1 on 08/12/2022 by Colten Christina MD at [facility] Left: Ureter [facility] 04/30/2025 [id number] / / [id number] Description:Sticker sheet no t received Procedures Procedure Name Priority Date/Time Associated Diagnosis Comments XR MAMMO BILAT SCREENING Routine 03/14/2023 3:45 PM CDT Encounter for screening mammogram for malignant neoplasm of breast LIPID PANEL W REFLEX MEASURED LDL Routine 11/01/2022 4:45 PM CDT Lipid screening COLONOSCOPY DIAGNOSTIC Routine 12/12/2021 12:00 AM CDT Positive colorectal cancer screening using DNA-based stool test HPV THIN PREP Routine 11/04/2021 11:45 AM CDT Screening for malignant neoplasm of cervix XR DXA BONE DENSITY 2 SITES AXIAL Routine 01/30/2017 12:21 PM CDT Hyperparathyroidism, unspecified (HC) ANTI HCV Routine 12/29/2014 8:19 AM CDT Need for hepatitis C screening test ANTI HIV 1/2 Routine 09/14/2010 2:45 PM CDT Preop examination from Last 3 Months or Most Recently Relevant to Health Maintenance Results * XR MAMMO BILAT SCREENING (03/14/2023 3:45 PM CDT) Anatomical Region Laterality Modality BREASTS, Breast Left, Breast Right Bilateral Mammography Impressions 03/15/2023 4:00 PM CDT ??There is no radiographic evidence for malignancy. ??Recommend annual mammograms. MAMMOGRAM ASSESSMENT: ??ACR 1 Negative PATIENTS: You will also receive a letter with your examination results in an easy to read format. ??If you have questions about your results, please contact your referring provider. Narrative 03/15/2023 4:00 PM CDT For Patients: As a result of the 21st Century Cures Act, medical imaging exams and procedure reports are released immediately into your electronic medical record. You may view this report before your referring provider. If you have questions, please contact your health care provider. XR MAMMO BILAT SCREENING [[id number]] CLINICAL HISTORY: ??This is an asymptomatic 62 y.o. patient. INDICATION FOR EXAM: Mammogram Screening. TECHNIQUE: CC & MLO views were obtained. ??This study was evaluated with the assistance of Computer-Aided Detection. COMPARISON FILM: Yes 11/04/21 [facility] 06/07/20 [facility] FINDINGS: ??The breasts have scattered areas of fibroglandular density. There are no dominant masses, suspicious micro calcifications or areas of architectural distortion. Salena Her MD MAMMO * (ABNORMAL) LIPID PANEL W REFLEX MEASURED LDL (11/01/2022 4:45 PM CDT) CHOLESTEROL,TOTAL 193 100 - 199 mg/dL 11/02/2022 3:49 PM CDT [facility] Comment: Cholesterol, Total Reference Ranges Desirable <200 mg/dL Borderline 200-239 mg/dL High >=240 mg/dL TRIGLYCERIDES 323(H) <150 mg/dL 11/02/2022 3:49 PM CDT [facility] HDL CHOLESTEROL 36(L) >40 mg/dL 3:49 PM CDT [facility] NON-HDL CHOLESTEROL 157(H) <145 mg/dl 11/02/2022 3:49 PM CDT [facility] CHOL/HDL RATIO 5.36(H) <4.50 11/02/2022 3:49 PM CDT [facility] LDL CHOLESTEROL 92 <=130 mg/dL 11/02/2022 3:49 PM CDT [facility] VLDL CHOLESTEROL 65(H) <=30 mg/dL 11/02/2022 3:49 PM CDT [facility] PROVIDER ORDERED STATUS RANDOM 11/02/2022 3:49 PM CDT [facility] Blood BLOOD SPECIMEN / Unknown Butterfly / Unknown 11/01/2022 4:45 PM CDT 11/01/2022 4:47 PM CDT Salena Her MD [facility]Y [facility] [address] [place] [address], [place] * COLONOSCOPY DIAGNOSTIC (12/12/2021 12:00 AM CDT) Salena Her MD GI PROCEDURE ORD * HPV HIGH RISK (11/04/2021 11:45 AM CDT) TYPE 16 Negative Negative 11/08/2021 11:14 AM CDT [facility] TYPE 18 Negative Negative 11/08/2021 11:14 AM CDT [facility] OTHER HIGH RISK TYPES Negative Negative 11/08/2021 11:14 AM CDT [facility] Other (Cervical) Non-Blood / Unknown 11/04/2021 11:45 AM CDT 11/07/2021 8:56 AM CDT Narrative [facility] - 11/08/2021 11:14 AM CDT HPV types 16, 18, 31, 33, 35, 39, 45, 51, 52, 56, 58, 59, 66 and 68 DNA were undetectable or below the pre-set threshold. Methodology: Helen Nikos 4800 HPV Test Salena Her MD MICROBIOLOGY [facility] [address] [place] [address], * XR DXA BONE DENSITY 2 SITES AXIAL (01/30/2017 12:21 PM CDT) Anatomical Region Laterality Modality Spine, HIPS, HIPL, HIPR Computed Radiography Raul Hernandez MD DEXA * ANTI HCV [[id number]] (12/29/2014 8:19 AM CDT) HEPATITIS C ANTIBODY Non-Reacti ve Non-Reacti ve 12/29/2014 5:18 PM CDT [facility] Blood specimen (specimen) BLOOD SPECIMEN / Unknown Butterfly / Unknown 12/29/2014 8:19 AM CDT 12/29/2014 8:19 AM CDT Narrative [facility] - 12/29/2014 5:18 PM CDT Antibodies to HCV not detected; does not exclude the possibility of exposure to HCV. Chapin Ozuna MD SEND OUTS [facility] [address] [place] [address], [place] * ANTI HIV 1/2 (09/14/2010 2:45 PM CDT) ANTI HIV 1/2 Non-reacti ve [facility] Blood specimen (specimen) BLOOD SPECIMEN / Unknown 09/14/2010 2:45 PM CDT 09/14/2010 2:24 PM CDT Chapin Ozuna MD SEND OUTS [facility] INTERNAL ZIP [address] [address] from Last 3 Months or Most Recently Relevant to Health Maintenance Advance Directives Documents on File Type Date Recorded Patient Emergency Registrar Expl anation Healthcare Directive 05/21/2015 9:50 AM SEPTEMBER 19, 2010 * Full Code (Latest Code Status on File) Date Activated Date Inactivated Comments 01/19/2023 7:21 AM 01/19/2023 3:47 PM Question Answer Comments Code Status Discussion: Discussed * Full Code Date Activated Date Inactivated Comments 08/11/2022 4:14 AM 08/12/2022 3:42 PM Question Answer Comments Code Status Discussion: Other * Full Code Date Activated Date Inactivated Comments 01/15/2019 7:26 AM 01/15/2019 2:56 PM * Full Code Date Activated Date Inactivated Comments 04/24/2011 12:56 PM 04/24/2011 4:07 PM * Full Code Date Activated Date Inactivated Comments 09/21/2010 12:30 PM 09/23/2010 4:16 PM Care Teams Inside Sales Professional Relationship Specialty Start Date End Date [place] [address] PCP - General Family Practice 12/03/20 Saul Hanley PharmD Pharmacology 08/18/22
--- OUTSIDE RECORDS SUMMARY | 2023-10-15 08:28 | XMS_ITS | Data Portability ---
Author Organization [facility], [facility] Address [address] [place] [address] Care Team Providers Care Health Outcomes Liaison Name Role Phone MAYTE TUCKER Primary Care Provider Assessment No assessment recorded. Plan of Treatment Reminders Order Date Submit Date Provider Last Modified By Organization Details Last Modified Time Details Appointments None recorded. Lab None recorded. Referral None recorded. Procedures None recorded. Surgeries None recorded. Imaging XR, kidney + ureter + bladder [id number] [facility], [address], [place], [address], 16:09:16 Medication Orders None recorded. Patient TargetsNo targets recorded. Patient InstructionsNo instructions recorded. Reason for Referral None Reported. Results Created Date Observation Date Name Description Value Unit Range Abnormal Flag LastModifiedBy Organization Detail LastModifiedTime 11/03/1910/30/2022 , natty Fajardo observ ation record ed. lbaumgarten [facility] [address], [place], [address], 11/02/2022 10:27:38 Result Notes None recorded. Problems Name Status Onset Date Resolution Date Notes Provider Name and Address Organization Details Recorded Time Kidney stone Active 08/13/19 23 VALENTINA REED MD [address], [place], [address], [place] [facility] 08/12/2022 10:07:27 Postoperative pain Active 04 VALENTINA REED MD [address], [place], [address], [place] [facility] 08/21/2022 17:43:00 Problem Notes None recorded. Procedures Surgical History Date Name Laterality Status Provider Name and Address Organization Details Recorded Time 2 colonoscopy completed Eleanor Mauri whitt, [facility] 12/11/2022 10:59:15 1 screening colonoscopy completed Eleanor Mauri whitt, [facility] 12/11/2022 10:59:32 9 [facility] 10:59:59 8 lumpectomy of breast completed Eleanor Mauri whitt [facility] 12/11/2022 11:00:13 Imaging Results Imaging Date Name Status LastModified by Organiz ation Details LastModified Time 10/30/2022 US, kidney completed [facility] [address], [place], [address], 11/02/2022 10:27:38 Procedure Notes None recorded. Medical Equipment None Reported. Medications Name Sig Start Date Stop Date Status Note LastModified by Organization Details LastModified Time cyclobenzapr ine 10 mg tablet TAKE 1 TABLET (10 MG) BY MOUTH 3 TIMES DAILY IF NEEDED FOR MUSCLE SPASM. active Not Available Not Available No t Available levothyroxin e 175 mcg tablet TAKE 1 TABLET TABLET BY MOUTH DAILY active Not Available Not Available Not Available valacyclovir 1 gram tablet TAKE 2 TABLETS (2 G) BY MOUTH EVERY 12 HOURS. active Not Available Not Available No t Available phentermine 37.5 mg tablet TAKE 1 (ONE) TABLET(S) BY MOUTH DAILY active Not Available Not Available No t Available acetaminophe n 300 mg-codeine 30 mg tablet TAKE 1 TABLET BY MOUTH EVERY 4 HOURS IF NEEDED FOR PAIN. MAX ACETAMINOPH EN DOSE: 4000MG IN 24 HRS. active Not Available Not Available No t Available ciprofloxaci n 250 mg tablet active Not Available Not Available Not Available doxepin 10 mg capsule TAKE 1 TO 2 CAPSULES BY MOUTH AT BEDTIME FOR HIVES active Not Available Not Available No t Available spironolacto ne 25 mg tablet TAKE ONE TABLET BY MOUTH TWICE DAILY NEEDED FOR EDEMA active Not Available Not Available No t Available oxycodone-ac etaminophen 5 mg-325 mg tablet active Not Available Not Available Not Available famotidine 20 mg tablet TAKE 1 TABLET BY MOUTH 2 TIMES DAILY NEEDED active Not Available Not Available No t Available tamsulosin 0.4 mg capsule active Not Available Not Available Not Available cyanocobalam in (vit B-12) 1,000 mcg/mL injection solution INJECT 1 ML INTRAMUSCUL AR EVERY 4 WEEKS. active Not Available Not Available No t Available metformin 1,000 mg tablet TAKE 1 TABLET BY MOUTH TWICE A DAY active Not Available Not Available No t Available levothyroxin e 150 mcg tablet TAKE 1 TABLET TABLET BY MOUTH DAILY active Not Available Not Available Not Available montelukast 10 mg tablet TAKE 1 TABLET BY MOUTH AT BEDTIME active Not Available Not Available No t Available allopurinol 300 mg tablet TAKE 1 TABLET(300M G) BY MOUTH ONCE DAILY. active Not Available Not Available Not Available furosemide 20 mg tablet TAKE TWO TABLETS BY MOUTH EVERY MORNING active Not Available Not Available No t Available colchicine 0.6 mg tablet TAKE ONE TABLET BY MOUTH 2 TIMES DAILY NEEDED active Not Available Not Available No t Available ondansetron 4 mg disintegrati ng tablet active Not Available Not Available No t Available metformin ER 500 mg tablet,exten ded release 24 hr TAKE 4 TABLETS BY MOUTH DAILY active Not Available Not Available Not Available oxycodone 5 mg tablet TAKE ONE TABLET BY MOUTH EVERY SIX HOURS NEEDED FOR PAIN active Not Available Not Available No t Available peg 3350-electro lytes 236 gram-22.74 gram-6.74 gram-5.86 gram solution 0AKE 4,000 ML BY MOUTH . DRINK 3 LITERS THE DAY BEFORE COLONOSCOPY AND 1 LITER 6 HOURS BEFORE COLONOSCOPY APPOINTMENT active Not Available Not Available Not Available Vitals None Recorded Social History None recorded. Functional Status None recorded. Mental Status None recorded. Family History Nothing Reported. Medical History No medical history recorded. Gynecological HistoryNo gynecological history recorded. Obstetrics History GPAL:G 0 P 0 0 0 0 Immunizations Vaccine Type Date Status Provider Name and Address Organization Details Recorded Time zoster recombinant 05/28/2020 completed Eleanor wihtt [facility] 01/18/2023 15:23:47 zoster recombinant 11/02/2020 completed Eleanor whitt [facility] 01/18/2023 15:23:47 COVID-19, mRNA, LNP-S, PF, 100 mcg/0.5mL dose or 50 mcg/0.25mL dose 08/04/2020 completed Eleanor Dotson null, [facility] 01/18/2023 15:23:47 COVID-19, mRNA, LNP-S, PF, 100 mcg/0.5mL dose or 50 mcg/0.25mL dose 09/01/2020 completed Eleanor Dotson null, [facility] 01/18/2023 15:23:47 COVID-19, mRNA, LNP-S, PF, 30 mcg/0.3 mL dose, michel-sucrose 06/20/2021 completed Eleanor Dotson null, [facility] 01/18/2023 15:23:47 COVID-19, mRNA, LNP-S, PF, 30 mcg/0.3 mL dose, michel-sucrose 11/04/2021 completed Eleanor Dotson null, [facility] 01/18/2023 15:23:47 COVID-19, mRNA, LNP-S, bivalent, PF, 30 mcg/0.3 mL dose 02/10/2022 completed Eleanor Dotson null, [facility] 01/18/2023 15:23:47 pneumococcal polysaccharide PPV23 03/08/2009 completed Eleanor Dotson null, [facility] 01/18/2023 15:23:47 pneumococcal polysaccharide PPV23 03/11/2002 completed Eleanor Dotson null, [facility] 01/18/2023 15:23:47 Tdap 03/24/2008 completed Eleanor Dotson null, [facility] 01/18/2023 15:23:47 Tdap 05/09/2019 completed Eleanor Dotson null, [facility] 01/18/2023 15:23:47 Pneumococcal conjugate PCV 13 04/20/2014 completed Eleanor Dotson null, [facility] 01/18/2023 15:23:47 Past Encounters Encounter ID Performer Location Encounter Start Date Encounter Closed Date Diagnosis/Indication Diagnosis SNOMED-CT Code [id number] MD Bernadine BURROWS[place] [address] [facility] [facility] [address] [place] [place] [address] 11/10/2022 14:39:09 11/10/2022 16:09:16 Kidney stone [id number] Health Concerns Section Related Observation LastModified by Organization Detai ls LastModified Time None Recorded Concern Status LastModified by Organization Details LastModified Time None Recorded Advance Directives Directive None Recorded Payers Encounter Date Sequence Insurance Name Policy Number Policy Valle Covered Member ID Valle Member ID Guarantor Name 11/10/2022 1 [facility] [id number] Zayra Sheehan [id number] Zayra Sheehan Notes Date Note Type Note Provider Name and Address Organization Details Recorded Time 11/10/2022 text/html HPI Notes: s/p LEFT urs CT showed small right side stones upcoming Parathyroid surgery VALENTINA REED MD [address], [place], [address], [facility] 11/10/2022 15:12:53 OBGyn Episode No OBEpisode recorded.
--- NOTE | 2023-10-15 08:45 | CRLHL7_ITS ---
For Patients: As a result of the Century Cures Act, medical imaging exams and procedure reports are released immediately into your electronic medical record. You may view this report before your referring provider. If you have questions, please contact your health care provider. INDICATION: Abdominal pain after eating COMPARISON: CT 08/21/2022 TECHNIQUE: Real time kam scale imaging and color Doppler analysis was performed of the right upper quadrant. FINDINGS: The patient`s liver is of normal size and has uniform echogenicity. There is a normal appearance of the hepatic IVC and proximal abdominal aorta. There is no evidence of ascites. The gallbladder is of normal size and there are multiple layering echogenic stones within the gallbladder lumen. The gallbladder wall measures 1.3 mm in thickness. The common bile duct is of normal size and measures 4.4 mm in diameter at the level of the nikole hepatis. The pancreas appears normal. There is no evidence of a stone or hydronephrosis within the right kidney. The right kidney measures 10.0 cm in length. IMPRESSION: Cholelithiasis. Multiple layering echogenic and shadowing gallstones within the gallbladder lumen without biliary obstruction. Dictated by Juan Robbins MD @ 10/15/2023 9:38:41 AM (Electronically Signed)
== END 2023-10-15 08:25 | disposition home or self-care (01) ==
PROVIDERS: PCP Family Medicine; Visit Provider Internal Medicine Endocrinology, Diabetes & Metabolism
DX: R10.13 Epigastric pain (principal); K80.20 Calculus of gallbladder without cholecystitis without obstruction
CPT/HCPCS: 76705